=== PATIENT | female | born 1950 | race Caucasian/White ===

== ENCOUNTER 2024-06-10 12:52 | Inpatient (IN) | payer MEDICARE, OTHER, SELFPAY ==
[2024-06-10 12:53] VITALS: BP 120/50; PULSE 75; RESP 16; TEMP 35.7; O2SAT 97
--- NOTE | 2024-06-10 13:03 | ED.VIS.FEGU ---
HPI HPI - Female History of Present Illness Chief Complaint: Vag Bleeding Informant: patient, family and other (Detail Technician) Narrative Narrative: Patient sent in from her construction worker office Dr. Cait Becker, I spoke with her prior to arrival. She is status post bilateral salpingectomy with oophorectomy laparoscopically on the fourth, 9 days ago at [facility]. Reported had a manipulator device placed in her uterus have there is no surgical procedures for concerns of injury. She is on Eliquis for history of A-fib. She was restarted on her Eliquis 24 hours later. She is doing fine at 3 AM started having vaginal bleeding with clots. She went through 8 pads prior to seeing her construction worker today. In the office reported 200 cc of blood loss on vaginal exam she had a Boyer catheter placed in the cervix to control the bleeding. There was discussion with her pipe bowl paint trimmer Karel Reaves Did not reverse her Eliquis unless she requires blood transfusion. Her last hemoglobin is 12.9 in February per her construction worker. Patient did take her Eliquis at 5:30 AM today. She had ultrasound the office reported to me 5 to 6 mm clot in the uterus. Patient reports pelvic cramping. [facility] Medical History (Updated 06/10/24 @ 15:[address] Cait Becker MD) Hypothyroidism Non-smoker Hypertension Asthma COPD (chronic obstructive pulmonary disease) Congestive heart failure (CHF) Atrial fibrillation Home Medications ?Medication ?Instructions ?Recorded ?Last Taken ?Type albuterol sulfate 90 mcg/actuation 2 inh inhalation Q4H PRN shortness 06/10/24 Unknown History aerosol inhaler (Ventolin HFA) of breath or wheezing apixaban 5 mg tablet (Eliquis) 5 mg PO Q12H 06/10/24 Unknown History aspirin 81 mg tablet,delayed 81 mg PO DAILY 06/10/24 Unknown History release (Adult Aspirin Regimen) atenolol 50 mg tablet 100 mg PO Q24H 06/10/24 Unknown History budesonide-formoterol HFA 80 2 puff inhalation Q12H 06/10/24 Unknown History mcg-4.5 mcg/actuation aerosol inhaler (Symbicort) furosemide 40 mg tablet 40 mg PO Q12H 06/10/24 Unknown History guaifenesin 600 mg tablet, 600 mg PO BID 06/10/24 Unknown History extended release 12 hr (Mucinex) levothyroxine 75 mcg tablet 75 mcg PO DAILY 06/10/24 Unknown History lisinopril 20 mg tablet 20 mg PO DAILY 06/10/24 Unknown History omeprazole 20 mg capsule,delayed 20 mg PO DAILY 06/10/24 Unknown History release potassium chloride 20 mEq 40 meq PO DAILY 06/10/24 Unknown History tablet,extended release(part/cryst) psyllium husk 0.4 gram capsule 0.4 g PO DAILY 06/10/24 Unknown History (Daily Fiber) simvastatin 20 mg tablet (Zocor) 20 mg PO QHS 06/10/24 Unknown History Allergy/AdvReac Type Severity Reaction Status Date / Time ropinirole (From Requip) Allergy Mild Nausea Verified 06/10/24 12:53 Social History Smoking Status: Never smoker ROS ROS ED Constitutional Constitutional ED: Denies chills, fever(s) or sweats Eyes Eyes: Denies change in vision ENT ENT ED: Denies dysphagia or sore throat Cardiovascular Cardiovascular: Denies chest pain, leg edema, palpitations or racing heartbeat Respiratory/Chest Respiratory/Chest: Denies cough, dyspnea or dyspnea on exertion Gastrointestinal Gastrointestinal: Denies abdominal pain, diarrhea, nausea or vomiting Genitourinary Genitourinary ED: Reports other Details: Vaginal bleeding ; Denies dysuria, hematuria or urinary frequency Musculoskeletal Musculoskeletal: Denies back pain, extremity pain or neck pain Integumentary Denies rash or wounds Neurologic Neurologic: Denies headache(s), paresthesias or weakness EXAM Physical Exam Const Vital Signs: 06/10/24 12:53 06/10/24 13:40 Temperature 96.3 F L 97.8 F Temperature Source Temporal Pulse Rate 75 62 Respiratory Rate 16 18 Blood Pressure 120/50 L 112/65 Blood Pressure Mean 73 80 Pulse Ox 97 95 Oxygen Delivery Method Room Air Positive well nourished and well developed General Appearance ED: well developed and NAD; Negative for pallor HEENT Reports moist mucous membranes normocephalic and atraumatic Eyes EOMs intact bilaterally and conjunctivae normal General Eye ED: Yes normal appearance of both eyes; Negative for pale conjunctiva Neck no lymphadenopathy and supple General: Negative for tenderness Chest Wall Chest: Negative for tenderness Resp normal respiratory effort and normal air movement Effort and Inspection: symmetric chest movement; Negative for respiratory distress Cardio regular rate, regular rhythm and no murmurs Peripheral Pulses: pulses 2+ throughout GI normal to inspection, nondistended, normoactive bowel sounds and non-tender GI Narrative: Laparoscopic incisions improving bruising, wounds clean, dry, intact. Palpation: Negative for guarding or rebound tenderness present Back/Spine no CVA tenderness and no thoracic nor lumbar tenderness Extremity normal to inspection General Extremety ED: Negative for edema or tenderness General Extremity: Negative for edema Neuro oriented x3 and no sensory deficits noted Sensorium / Orientation: awake and alert Skin no rashes or lesions noted and no wounds General Skin Exam: Negative for pallor MDM MDM MDM Narrative Medical decision making narrative: Interventions / MDM: Differential diagnosis: Vaginal bleeding, chronic anticoagulation, paroxysmal atrial fibrillation Diagnosis considered but do not suspect: N/A My EKG interpretation: N/A Imaging independently reviewed and interpreted by myself: N/A External documents reviewed: N/A Test considered but not ordered:N/A ED course: Vital stable nontoxic. Reports cramping nausea Bentyl Zofran ordered. Labs ordered include coags and type and screen. No reversal at this time as discussed when her doctor called in. Heart is regular at this time. Will discuss with her construction worker for admission. I discussed with Dr. Becker for admission to the medical floor. 1325: Hemoglobin 13.4. Re-evaluation: stable Disposition discussed with patient/family/significant other: Patient and daughter Case discussed with consulting clinician: Gynecology This note was generated with [employer] dictation software. It may contain incorrect words, spelling, and punctuation that were not noted in checking the note before signing. Lab Data Attestation: I reviewed the patient's lab results. Labs: Laboratory Results - last 24 hr 06/10/24 13:10 WBC 8.3 RBC 4.49 Hgb 13.4 Hct 40.5 MCV 90.2 MCH 29.8 MCHC 33.1 RDW Std Deviation 41.2 RDW Coeff of Tierney 12.5 Plt Count 261 MPV 10.4 Immature Gran % (Auto) 0.400 Neut % (Auto) 67.5 Lymph % (Auto) 19.6 Green % (Auto) 8.9 Eos % (Auto) 3.1 Baso % (Auto) 0.5 Absolute Neuts (auto) 5.6 Absolute Lymphs (auto) 1.63 Nucleated RBC % 0 PT 15.8 H INR 1.3 APTT 26.9 Sodium 138 Potassium 4.0 Chloride 104 Carbon Dioxide 29.0 Anion Gap 5 BUN 14 Creatinine 0.70 Estim Creat Clear Calc 54.68 Est GFR (MDRD) Af Amer 104 Est GFR (MDRD) Non-Af 86 BUN/Creatinine Ratio 19.9 Glucose 102 Calcium 8.9 Blood Type B POSITIVE Antibody Screen NEGATIVE Discharge Plan Dx/Rx/DC Orders Clinical Impression: Abnormal vaginal bleeding, Chronic anticoagulation, Pelvic cramping Disposition Disposition: Acute Care [facility] Discharge Date/Time: 06/10/24 14:45
[2024-06-10 13:10] VITALS: BMI 36.5
[2024-06-10] MEDS: Dicyclomine 10 MG Capsule 20 MG PO (13:15)
[2024-06-10] MEDS: Ondansetron 4 MG/2 ML Vial IV (13:15)
[2024-06-10 13:22] LABS: Absolute Lymphocyte Count 1.63 X10^3/uL (0.83-4.51); Absolute Neutrophil Count 5.6 X10^3/uL (2.0-7.7); Basophil# 0.04 X10^3/uL; Basophil% 0.5 % (0-1); Eosinophil# 0.26 X10^3/uL; Eosinophils% 3.1 % (0-5); Hematocrit 40.5 % (37-47); Hemoglobin 13.4 g/dL (12.0-15.0); Lymphocyte # 1.63 X10^3/ul (0.83-4.51); Lymphocyte % 19.6 % (19-41); Mean Corp Hgb Conc 33.1 g/dL (32-36); Mean Corpuscular Hgb 29.8 pg (27.0-32.0); Mean Corpuscular Volume 90.2 fL (81-99); Mean Platelet Vol. 10.4 fl (6.2-12.0); Monocyte# 0.74 X10^3/uL; Monocyte% 8.9 % (0-10); NRBC Flagged by Analyzer 0 % (0-5); Neutrophil % 67.5 % (47-70); Platelet Count 261 K/mm3 (150-450); RBC Distribution Width CV 12.5 % (11.6-14.6); RBC Distribution Width SD 41.2 fl (35.1-43.9); Red Blood Count 4.49 M/mm3 (4.2-5.4); White Blood Count 8.3 K/mm3 (4.4-11.0)
[2024-06-10 13:33] LABS: Anion Gap 5 (5-15); BUN 14 mg/dL (7-18); BUN/Creat Ratio 19.9 RATIO (10-20); Calcium,Total 8.9 mg/dL (8.5-10.1); Chloride 104 mmol/L (98-107); EST Glomerular Filtration Rate 86 mL/min (>60); Est Glom Filt Rate - Afr Amer 104 mL/min (>60); Estimated Creatinine Clearance 54.68 ml/min; Glucose 102 mg/dL (74-106); Sodium Level 138 mmol/L (136-145)
[2024-06-10 13:40] VITALS: BP 112/65; PULSE 62; RESP 18; TEMP 36.6; O2SAT 95
[2024-06-10 13:44] LABS: International Normalized Ratio 1.3; Partial Thromboplast Time 26.9 Seconds (24.1-36.2); Prothrombin Time (Protime)PT. 15.8 SECONDS (11.7-14.9)
[2024-06-10] MEDS: Morphine 2 MG/ML Syringe IV (13:44)
--- NOTE | 2024-06-10 14:09 | CASEMGMT ---
Care Management Face to Face with patient for initial transition planning/care coordination assessment? This conventional underwriter introduced self and role at [facility]. Patient lying in bed, alert and oriented. Patient willing to participate in assessment and is able to answer all questions appropriately.?? Daughter also in room and permission given for her to participate in assessment. Care providers, pharmacy, and demographics verified. Admitting Diagnosis: Abnormal vaginal bleeding Other diagnosis history:? Asthma, COPD, CHF, Afib PCP: ?Randa Gonzalez, FILTRATION SUPERVISOR Specialists: Dr. Becker, JOEL, Dr. Lopez, Pulmonology Preferred Pharmacy: [facility] Insurance: Medicare A and B, [employer] Prescription Benefit:? Medicare D, patient cannot remember plan name Living Will/HPOA: ?Patient has both Living Will and HPOA completed, daughter to bring in copies if she has time LNOK: Echo Nava, daughter Living Arrangements: patient lives in a one story home, 3 steps to enter Transportation: patient drives and has reliable transportation DME/HHC: has a blood pressure cuff and grab bars in the basement Community Resources: none Behavioral Health History:? none Patient goals: Patient wishes to discharge home.? Patient states she has no further needs or concerns at this time. Disposition Plan: ?CM to follow for discharge planning needs that may arise Ivanna Goldstein, PASTA PRESS OPERATOR, JUSTICE COURT DEPUTY CLERK
[2024-06-10 14:55] VITALS: BMI 35.9
[2024-06-10 15:01] VITALS: BP 134/65; PULSE 63; RESP 16; TEMP 36.4; O2SAT 98
[2024-06-10 15:05] VITALS: PULSE 80
--- NOTE | 2024-06-10 15:35 | CT_ITS ---
INDICATION: serrous carcinoma of left fallopian tube EXAMINATION: CTA abdomen and pelvis - TECHNIQUE: Routine abdominal CT angiogram protocol was performed with IV contrast. MIP images provided. A radiation dose optimization technique was used for this scan.The protocol utilizes one or more of the following dose reduction techniques: automated exposure control, adjustment of mA and/or kV according to patient size,and/or use of iterative reconstruction technique. IV Contrast dosage and agent: 100 mL''s Isovue 370 Radiation dose DLP 985.85 mGy / cm. COMPARISON: None. FINDINGS: Lung bases: Cardiomegaly. Liver: Normal. No bile ductal dilatation. Gallbladder: Normal. Spleen: Normal. Adrenal gland: Normal. Kidneys: Normal. No hydronephrosis or stone formation. Pancreas:Normal. Bowel gas pattern: Increased gas in the colon. Appendix: Normal. Free air: None. Free fluid: [Moderate free fluid. Pelvis: Pelvic organs: No mass lesion noted. Bladder decompressed with a Boyer catheter. Bone survey: No aggressive bony lesions. No acute fractures. Adenopathy: No significant pathologic adenopathy detected. Other: None. Vascular: Normal vascular anatomy, CT/CTA Abd/Pelvis W/WO Contrast IMPRESSION: Moderate free fluid in the pelvis. Uterus not identified. No definite mass. Electronically Signed: Ovi Montes MD at 17:25 EST ,
--- NOTE | 2024-06-10 15:51 | HP.PCM_ITS ---
History and Physical Date of Admission: 06/10/24 Oma Cline is a 74 year old female who presents for problem visit for vaginal bleeding . HPI: 74-year-old female who status post laparoscopic bilateral salpingectomy and oophorectomy on 06/01/2024 presents complaining of acute bright red vaginal bleeding. She states she woke up at 3 AM with bright red vaginal bleeding. She had no vaginal bleeding up until now postoperatively. She reports that she has had normal bowel movements and urination. Her appetites been normal. She has had some ecchymoses around her incisions. She states that she has continued to pass some clots and bright red bleeding and saturated approximately 8 or 9 pads since this morning. They have not been completely saturated but they have been fairly flat. She denies feeling lightheaded, dizzy shortness of breath or chest pain or palpitations. She denies any trauma to the vaginal area. She states that she did take her Eliquis this morning. OB History T3 L3 SAB2 IAB0 Ectopic0 Multiple0 Live Births3 Narcotics Detective History LMP: Postmenopausal Age at Menarche: Age at First : Age at Menopause: Narcotics Detective History Comments: Sexual Activity: Not Asked; No partner data on record; not asked Contraception: No contraception data on record ? PAST MEDICAL HISTORY PAST MEDICAL HISTORY Diagnosis Date ? Acquired hypothyroidism ? Adjustment disorder with anxious mood Since of 07/2010 ? Atrial fibrillation (HCC) ? Bronchitis ? Chronic diastolic heart failure (HCC) ? Chronic obstructive lung disease (HCC) ? Conjunctivitis ? Cutaneous hypersensitivity ? Depressive disorder ? Dysphagia ? Dyspnea on exertion ? Edema ? Essential hypertension ? Fatigue ? Gastroesophageal reflux disease ? History of colonic polyps ? Hyperlipidemia ? Knee pain, right ? Nasal congestion ? Obesity with body mass index 30 or greater ? Otalgia ? Pain in lower limb ? Peripheral edema ? Pneumonia ? Restless legs ? Urge incontinence of urine ? Vitamin D deficiency PAST SURGICAL HISTORY PAST SURGICAL HISTORY Procedure Laterality Date ? COLONOSCOPY 03/10/[address] Pastor ? EGD 04/14/2019 ? KNIFE,CARPAL TUNNEL, Carpal Tunnel Surgery FAMILY HISTORY FAMILY HISTORY Problem Relation Age of Onset ? Heart Mother CABG x3 ? Alzheimer's Disease Mother ? other (Parkinson's) Mother ? Alcohol/Drug Father ? other (lung problems) Father ? other (collapsed lung) Father ? Heart Maternal Grandmother ? Heart Maternal Grandfather ? Breast Cancer Paternal Grandmother ? Asthma Daughter ? Diabetes Son ? Anesthesia Problems No Family History SOCIAL HISTORY Social History Tobacco Use ? Smoking status: Never ? Smokeless tobacco: Never Vaping Use ? Vaping status: Never Used Substance Use Topics ? Alcohol use: No ? Drug use: No CURRENT MEDICATIONS Current Outpatient Medications Medication Sig ? Ibuprofen 200 mg cap Take 2 capsules by mouth every 4 hours as needed (for pain). ? acetaminophen (TYLENOL EXTRA STRENGTH) 500 mg tablet Take 2 tablets by mouth every 6 hours as needed for pain. ? simvastatin (ZOCOR) 20 mg tablet Take 20 mg by mouth daily at bedtime. ? potassium chloride ER (KLOR-CON) 20 mEq tablet TAKE 2 TABLETS ONE TIME DAILY ? albuterol HFA (VENTOLIN HFA) 90 mcg/actuation inhaler INHALE 2 PUFFS EVERY 4 HOURS NEEDED FOR WHEEZING / SHORTNESS OF BREATH DIRECTED ? budesonide-formoterol (SYMBICORT) 160-4.5 mcg/actuation inhaler Inhale 2 Puffs as instructed two times a day. ? furosemide (LASIX) 40 mg tablet take 1 tablet twice daily ? ELIQUIS 5 mg tab(s) take 1 tablet twice daily ? atenolol (TENORMIN) 50 mg tablet TAKE 2 TABLETS ONE TIME DAILY ? levothyroxine (SYNTHROID) 75 mcg tablet take 1 tablet every day ? lisinopril (ZESTRIL) 20 mg tablet take 1 tablet every day ? MUCINEX 600 mg 12 hr tablet take 1 tablet twice daily ? aspirin 81 mg chewable tablet Take 81 mg by mouth once daily. ? Omeprazole Magnesium 20 mg tablet Take 20 mg by mouth once daily. ? psyllium husk 0.4 gram cap Take by mouth. (Patient not taking: Reported on 05/26/2024) No current facility-administered medications for this visit. Allergies As of Date: 06/10/2024 Allergen Noted Reaction MIRAPEX [PRAMIPEXOLE] 04/26/2020 Other: See Comments REQUIP [ROPINIROLE] 04/16/2016 Diarrhea, GI Upset, and Vomiting Fully Assessed 06/10/2024 Allergies and current medication updated:Yes SENSITIVE EXAM: The sensitive examination was discussed with the Patient or Patient's Authorized Tax Auditor. As applicable, any other physician, advance practice provider, medical student, or other health professional student that will be observing or involved in the sensitive examination for educational or training purposes was discussed with the Patient or Authorized Tax Auditor. The Patient or Authorized Tax Auditor has agreed to proceed with the sensitive examination. (Sensitive examination includes inspection and/or palpation of the breasts, pelvis, prostate and anorectal regions). EXAM: There were no vitals taken for this visit. GENERAL: pleasant, female in no apparent distress ABDOMEN: soft, minimally-tender, no masses, and incisions are clean dry and intact with skin glue. There are some diffuse ecchymosis consistent with postop . bruising. No erythema. No rebound or guarding PELVIC: external genitalia normal, normal Bartholin's glands, urethra, [place]'s glands, no vulvar lesions, no cervical lesions, good vaginal support, normal appearing perineal body and perianal region, there is approximately 50 cc of blood and clot in the vagina when I placed the speculum. There is bright red blood oozing from the cervical os. The uterus is minimally tender and mobile. ASSESSMENT AND PLAN: Assessment & Plan PMB (postmenopausal bleeding) Orders: ? PELVIC US WHI; Future ? Anticoagulated ? 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 Then consult with [facility] oncology. Consult is scheduled. Patient is having active vaginal bleeding. A pelvic ultrasound was done in the office today. Ovaries are surgically absent. Uterus is small and normal in appearance except for some small amount of fluid collection consistent with a blood clot in the uterus. It is less than 1 cm. Patient had several gushes of blood while in the office. Spoke with patient's clinical education assistant. Agrees that patient should be observed in the hospital for continued bleeding. Would consider reversal of Eliquis if hemoglobin drops significantly or we cannot control bleeding conservatively. Patient did take her Eliquis today we will hold the Eliquis for the next 24 to 36 hours and see if the Boyer balloon tamponade holds. Checkout was given to the emergency room physician as there were no beds available for direct admission at the time patient left the office. Will check CBC, metabolic panel, coags and have patient typed and screened in case she needs a transfusion. If continues to bleed actively despite the Boyer balloon would consider transport to tertiary care center in case needs surgical or interventional radiology to be involved. Patient and her daughter Echo agree w/ plan. 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 If can do during admission will in case needs transported. If needs surgical intervetion would transport so circuit board inspector onc is available. 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
--- NOTE | 2024-06-10 16:03 | CON.PCM.HO_ITS ---
Assessment & Plan Assessment/Plan (1) Abnormal vaginal bleeding: PLAN: Plan Patient is a 74-year-old female who presented [facility] ED on 06/10/2024 for vaginal bleeding. Admitted to the INFORMATION SYSTEMS DIRECTOR service and medicine was consulted for medical management. 1. Vaginal bleeding with mild acute blood loss anemia ? INFORMATION SYSTEMS DIRECTOR primary. Pelvic ultrasound done in INFORMATION SYSTEMS DIRECTOR office showed small uterus normal in appearance except for a small amount of fluid collection consistent with blood clot in the uterus. Boyer balloon tamponade in place. Hemoglobin trend 13.4 (1pm) > 11.8 (6pm), repeat CBC ordered for tomorrow morning. Has been hemodynamically stable. Last dose of Eliquis was this morning; was discussed with cardiology per INFORMATION SYSTEMS DIRECTOR physician and Eliquis will be held for 24 to 36 hours. Per INFORMATION SYSTEMS DIRECTOR, if patient has worsening bleeding despite Boyer balloon would consider transport to tertiary care center in case of need for surgical/research and development technician onc or interventional radiology services. 2. 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 Had laparoscopic salpingectomy and oophorectomy done on 06/01. Unclear on reason for procedure, not listed in note. 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 CT abdomen pelvis with IV contrast on 06/10 showed moderate free fluid in the pelvis with uterus not identified, otherwise no definitive mass and no other lesions noted. Plan as above. 3. A-fib on Eliquis ? Holding Eliquis as noted above. Okay to continue home atenolol. 4. History of CHF, hypertension, hyperlipidemia ? Hemodynamically stable and appeared euvolemic on exam on admit. Blood pressure normotensive to borderline hypotensive. Unclear degree of heart failure, no echo results available in our chart. Given 500 cc LR bolus this evening and will hold home Lasix and lisinopril for now. Hold home aspirin. Continue home statin. Monitor closely. Chronic medical conditions: ? Obesity: BMI 36 on admit. Complicates hospital course, care and prognosis. ? COPD: Stable on room air, not in acute exacerbation. Continue home inhalers. ? Hypothyroidism: Continue home Synthroid. ? GERD: Continue home PPI. DVT prophylaxis: SCDs Total clinical time spent by myself addressing the patient's medical issues, reviewing all the data, and collaborating with patient's care team: 50 minutes. HPI Consult Data Date of Consult: 06/10/24 HPI Narrative Reason for Consultation: Medical management HPI Narrative: RAHEEL SANCHEZ, is a 74 F who presented to [facility] ED on 06/10/2024 with vaginal bleeding. Patient was admitted under the INFORMATION SYSTEMS DIRECTOR service and medicine was consulted for medical management. Patient is status post laparoscopic bilateral salpingectomy and oophorectomy 06/01/[address] Becker. She is on Eliquis for A-fib. Patient began having vaginal bleeding this morning at 3 AM that woke her up from sleep. She noted that it was bright red blood. She had not had any vaginal bleeding until then postoperatively. She saturated approximately 8-9 pads this morning before going into the INFORMATION SYSTEMS DIRECTOR office. Pelvic ultrasound was done at the office that showed a small uterus that was normal in appearance except for some small amount of fluid collection consistent with a blood clot in the uterus. Dr. Becker did note the patient had several gushes of blood while in the office. She discussed with cardiology who recommended admission to the hospital for observation and holding Eliquis for now. There were no direct admit beds available so patient came into the ED. Boyer balloon was placed in the office to tamponade off bleeding prior to her going to the ED. Patient was hemodynamically stable on arrival to the ED. Hemoglobin was 13.4. She was then admitted for further management. I saw the patient at bedside on the floor, daughter was present. Patient was sitting up comfortably in bed, conversing normally, in no acute distress. Noted that she did have a small amount of blood in the toilet when she urinated about half an hour ago. She denied any lightheadedness or dizziness with ambulation. She did report mild lower abdominal cramping that has been fairly persistent throughout the day today. No other acute concerns at this time. [facility] Medical History (Updated 06/10/24 @ 15:[address] Cait Becker MD) Hypothyroidism Non-smoker Hypertension Asthma COPD (chronic obstructive pulmonary disease) Congestive heart failure (CHF) Atrial fibrillation Home Medications ?Medication ?Instructions ?Recorded ?Last Taken ?Type albuterol sulfate 90 mcg/actuation 2 inh inhalation Q4H PRN shortness 06/10/24 Unknown History aerosol inhaler (Ventolin HFA) of breath or wheezing apixaban 5 mg tablet (Eliquis) 5 mg PO Q12H 06/10/24 Unknown History aspirin 81 mg tablet,delayed 81 mg PO DAILY 06/10/24 Unknown History release (Adult Aspirin Regimen) atenolol 50 mg tablet 100 mg PO Q24H 06/10/24 Unknown History budesonide-formoterol HFA 80 2 puff inhalation Q12H 06/10/24 Unknown History mcg-4.5 mcg/actuation aerosol inhaler (Symbicort) furosemide 40 mg tablet 40 mg PO Q12H 06/10/24 Unknown History guaifenesin 600 mg tablet, 600 mg PO BID 06/10/24 Unknown History extended release 12 hr (Mucinex) levothyroxine 75 mcg tablet 75 mcg PO DAILY 06/10/24 Unknown History lisinopril 20 mg tablet 20 mg PO DAILY 06/10/24 Unknown History omeprazole 20 mg capsule,delayed 20 mg PO DAILY 06/10/24 Unknown History release potassium chloride 20 mEq 40 meq PO DAILY 06/10/24 Unknown History tablet,extended release(part/cryst) psyllium husk 0.4 gram capsule 0.4 g PO DAILY 06/10/24 Unknown History (Daily Fiber) simvastatin 20 mg tablet (Zocor) 20 mg PO QHS 06/10/24 Unknown History Allergy/AdvReac Type Severity Reaction Status Date / Time ropinirole (From Requip) Allergy Mild Nausea Verified 06/10/24 12:53 Social History Smoking Status: Never smoker ROS Constitutional Constitutional: Denies chills, fatigue, fever(s) or weakness Cardiovascular Cardiovascular: Denies chest pain Respiratory/Chest Respiratory/Chest: Denies shortness of breath at rest or shortness of breath with exertion Gastrointestinal Gastrointestinal: Reports abdominal pain; Denies constipation, diarrhea, nausea or vomiting Genitourinary Genitourinary: Reports hematuria Musculoskeletal Musculoskeletal: Denies arthralgias or myalgias Physical Exam Const alert, oriented x3 and no apparent distress Constitutional Narrative: Pleasant elderly female, obese, sitting up comfortably in bed, conversing normally, in no acute distress. General Appearance: cooperative and comfortable HEENT normocephalic, head/scalp atraumatic, hearing grossly normal bilaterally, nasal mucous membranes and turbinates normal and moist oral mucous membranes Eyes PERRL, EOMs intact bilaterally and conjunctivae normal Neck full ROM Chest inspection of chest normal Resp normal respiratory effort, normal air movement, no use of accessory muscles and clear to auscultation bilaterally Cardio regular rate, regular rhythm, no murmurs and peripheral pulses 2+ throughout GI normal to inspection, nondistended, normoactive bowel sounds, soft to palpation, non-tender and non-distended Bladder / Kidney Exam: catheter in place and No bladder normal to palpation Back/Spine normal ROM Extremity normal to inspection, full ROM and no pedal edema Skin no rashes or lesions noted Psych mental status grossly normal Lab / Micro Data 06/10/24 18:30 06/10/24 13:10 Labs: Laboratory Results - last 24 hr 06/10/24 13:10: WBC 8.3, RBC 4.49, Hgb 13.4, Hct 40.5, MCV 90.2, MCH 29.8, MCHC 33.1, RDW Std Deviation 41.2, RDW Coeff of Tierney 12.5, Plt Count 261, MPV 10.4, Immature Gran % (Auto) 0.400, Neut % (Auto) 67.5, Lymph % (Auto) 19.6, [place] % (Auto) 8.9, Eos % (Auto) 3.1, Baso % (Auto) 0.5, Absolute Neuts (auto) 5.6, Absolute Lymphs (auto) 1.63, Nucleated RBC % 0, PT 15.8 H, INR 1.3, APTT 26.9, Sodium 138, Potassium 4.0, Chloride 104, Carbon Dioxide 29.0, Anion Gap 5, BUN 14, Creatinine 0.70, Estim Creat Clear Calc 54.68, Est GFR (MDRD) Af Amer 104, Est GFR (MDRD) Non-Af 86, BUN/Creatinine Ratio 19.9, Glucose 102, Calcium 8.9, Blood Type B POSITIVE, Antibody Screen NEGATIVE Charges/Coding Visit Charges Inpatient E&M: 82334 Subs Hosp L3
[2024-06-10] MEDS: Furosemide 40 MG Tablet PO (16:52)
[2024-06-10] MEDS: Acetaminophen 500 MG Tablet 1000 MG PO (16:54)
[2024-06-10 18:41] LABS: Hematocrit 34.9 % (37-47); Hemoglobin 11.8 g/dL (12.0-15.0); Mean Corp Hgb Conc 33.8 g/dL (32-36); Mean Corpuscular Hgb 30.5 pg (27.0-32.0); Mean Corpuscular Volume 90.2 fL (81-99); Mean Platelet Vol. 10.6 fl (6.2-12.0); Platelet Count 237 K/mm3 (150-450); RBC Distribution Width CV 12.6 % (11.6-14.6); RBC Distribution Width SD 41.2 fl (35.1-43.9); Red Blood Count 3.87 M/mm3 (4.2-5.4); White Blood Count 12.2 K/mm3 (4.4-11.0)
[2024-06-10] MEDS: guaiFENesin 600 MG Tablet PO (21:03)
[2024-06-10 21:12] VITALS: BP 100/43; PULSE 73; RESP 16; TEMP 36.4; O2SAT 95
[2024-06-10] MEDS: Lactated Ringers 1,000 ML 250 ML IV (22:03)
[2024-06-10] MEDS: 0.9% Saline Lock 10 ML Syringe IV (22:03)
[2024-06-11] MEDS: Acetaminophen 500 MG Tablet 1000 MG PO ×4 (00:13→20:32)
[2024-06-11 04:25] VITALS: BMI 35.9
[2024-06-11] MEDS: Levothyroxine 75 MCG Tablet PO (06:26)
[2024-06-11 06:29] VITALS: BP 122/57; PULSE 62; RESP 16; TEMP 36.4; O2SAT 95
[2024-06-11 07:28] LABS: Absolute Lymphocyte Count 1.16 X10^3/uL (0.83-4.51); Absolute Neutrophil Count 6.3 X10^3/uL (2.0-7.7); Basophil# 0.03 X10^3/uL; Basophil% 0.4 % (0-1); Eosinophil# 0.22 X10^3/uL; Eosinophils% 2.6 % (0-5); Hematocrit 32.2 % (37-47); Hemoglobin 10.7 g/dL (12.0-15.0); Lymphocyte # 1.16 X10^3/ul (0.83-4.51); Lymphocyte % 13.8 % (19-41); Mean Corp Hgb Conc 33.2 g/dL (32-36); Mean Corpuscular Hgb 30.2 pg (27.0-32.0); Mean Platelet Vol. 10.4 fl (6.2-12.0); Monocyte# 0.66 X10^3/uL; Monocyte% 7.9 % (0-10); NRBC Flagged by Analyzer 0 % (0-5); Neutrophil % 74.9 % (47-70); Platelet Count 201 K/mm3 (150-450); RBC Distribution Width CV 12.6 % (11.6-14.6); Red Blood Count 3.54 M/mm3 (4.2-5.4); White Blood Count 8.4 K/mm3 (4.4-11.0)
--- NOTE | 2024-06-11 07:28 | PN.OBGYN_ITS ---
Subjective Subjective Bleeding overnight has been minimal. Up to restroom at least twice. Mcdaniel still in place. Uncomfortable and sore but not in significant pain. No n/v. Objective Data Objective Data Vital Signs: Vital Signs Temp Pulse Resp BP Pulse Ox O2 Del Method 97.6 F L 62 16 122/57 H 95 Room Air 06/11/24 06:29 06/11/24 06:29 06/11/24 06:29 06/11/24 06:29 06/11/24 06:29 06/11/24 06:29 Oxygen Delivery Method Room Air Weight: 75.4 kg Body Mass Index (BMI) 35.9 Intake & Output: Intake and Output for Last 24 Hours 06/09/24 06/10/24 06/11/24 23:59 23:59 23:59 Intake Total 600 / 600 Balance 600 / 600 Lab / Micro Data 06/11/24 07:17 06/10/24 13:10 Labs: Laboratory Results - last 24 hr 06/10/24 13:10: WBC 8.3, RBC 4.49, Hgb 13.4, Hct 40.5, MCV 90.2, MCH 29.8, MCHC 33.1, RDW Std Deviation 41.2, RDW Coeff of Tierney 12.5, Plt Count 261, MPV 10.4, Immature Gran % (Auto) 0.400, Neut % (Auto) 67.5, Lymph % (Auto) 19.6, [place] % (Auto) 8.9, Eos % (Auto) 3.1, Baso % (Auto) 0.5, Absolute Neuts (auto) 5.6, Absolute Lymphs (auto) 1.63, Nucleated RBC % 0, PT 15.8 H, INR 1.3, APTT 26.9, Sodium 138, Potassium 4.0, Chloride 104, Carbon Dioxide 29.0, Anion Gap 5, BUN 14, Creatinine 0.70, Estim Creat Clear Calc 54.68, Est GFR (MDRD) Af Amer 104, Est GFR (MDRD) Non-Af 86, BUN/Creatinine Ratio 19.9, Glucose 102, Calcium 8.9, Blood Type B POSITIVE, Antibody Screen NEGATIVE 06/10/24 18:30: WBC 12.2 H, RBC 3.87 L, Hgb 11.8 L, Hct 34.9 L, MCV 90.2, MCH 30.5, MCHC 33.8, RDW Std Deviation 41.2, RDW Coeff of Tierney 12.6, Plt Count 237, MPV 10.6 Radiography Diagnostic Testing: Radiology Impression Abdomen/Pelvis CTA 06/10/24 15:35 IMPRESSION: Moderate free fluid in the pelvis. Uterus not identified. No definite mass. Electronically Signed: Ovi Montes MD at 17:25 EST , ADDENDUM: 06/10/241835 IMPRESSION: undefined ADDENDUM: 06/10/241856 IMPRESSION: undefined ROS ENT HEENT: Denies headache(s) Cardiovascular Cardiovascular: Denies lightheadedness Respiratory/Chest Respiratory/Chest: Denies shortness of breath at rest Gastrointestinal Gastrointestinal: Denies nausea or vomiting Neurologic Neurologic: Denies syncope or weakness Physical Exam Const alert, oriented x3 and no apparent distress General Appearance: cooperative and comfortable HEENT normocephalic Head and Scalp: atraumatic Eyes PERRL Resp normal respiratory effort GI soft to palpation and non-distended Inspection: incision intact, healing well and other (bruising around port sites) Narrative: scant old blood on pad Psych mental status grossly normal and affect normal Assessment & Plan (1) Abnormal vaginal bleeding: PLAN: Plan to remove mcdaniel at noon and evaluate for bleeding (2) Chronic anticoagulation: PLAN: Eliquis held for now. 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
[2024-06-11 10:01] VITALS: BP 137/67; PULSE 71; RESP 18; TEMP 36.6; O2SAT 94
[2024-06-11] MEDS: Pantoprazole Sodium 20 MG Tablet PO (10:09)
[2024-06-11] MEDS: Atenolol 100 MG Tablet PO (10:09)
[2024-06-11] MEDS: guaiFENesin 600 MG Tablet PO ×2 (10:09→20:32)
--- NOTE | 2024-06-11 13:13 | PCM.PN.BLA ---
Progress Note At bedside to check on pt. Having some cramping. No fevers, chills, malaise. Her bleeding has stopped. She has been ambulating without difficulty and no increased bleeding with ambulation. Denies Cp, SOB, palpitations. 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 Per radiologist the mcdaniel catheter has perforated through the uterus, and is in the abdominal cavity above the uterus. There is a small amount of blood in the pelvic cul de sac. Called intervention analyst oncologist that she is scheduled with next week for another opinion and to discuss plan of care. Will remove the mcdaniel and monitor patient's bleeding and symptoms. Head Of Integrated Media onc will attempt to get patient in sooner than scheduled appointment. Discussed with patient risk of infection and risk of bleeding again. Questions answered. Discussed transfer to tertiary care center with oncology if continued bleeding.
--- NOTE | 2024-06-11 14:02 | NURSING ---
At Approimately 1345, Dr. Skinner came up and took Balloon Tamponade out.
[2024-06-11 16:56] VITALS: BP 124/57; PULSE 63; RESP 18; TEMP 36.5; O2SAT 94
--- NOTE | 2024-06-11 16:59 | PN.HOSP_ITS ---
Reason for Visit Reason for Visit: Diagnoses Malignant neoplasm of pelvis (06/11/24) Abnormal uterine and vaginal bleeding, unspecified (06/11/24) Pelvic and perineal pain (06/11/24) termite exterminator helper (current) use of anticoagulants (06/11/24) Subjective Subjective Patient was seen and examined today, I talked at length with TRANSCRIPTION MANAGER by phone-Dr. Skinner-the patient's Boyer catheter which was inserted into the uterus to stop bleeding had evidently perforated the uterus and was inside the abdomen, this Boyer was removed today and they are waiting to get the patient up to see if she has further bleeding. Patient's daughter was in her room at the time my examination today. Objective Data Objective Data Vital Signs: Vital Signs Temp Pulse Resp BP Pulse Ox O2 Del Method 97.9 F 71 18 137/67 H 94 Room Air 06/11/24 10:01 06/11/24 10:01 06/11/24 10:01 06/11/24 10:01 06/11/24 10:01 06/11/24 10:01 Oxygen Delivery Method Room Air Weight: 75.4 kg Body Mass Index (BMI) 35.9 Intake & Output: Intake and Output for Last 24 Hours 06/09/24 06/10/24 06/11/24 23:59 23:59 23:59 Intake Total 600 / 600 Balance 600 / 600 Lab / Micro Data 06/11/24 07:17 06/10/24 13:10 Labs: Laboratory Results - last 24 hr 06/10/24 18:30: WBC 12.2 H, RBC 3.87 L, Hgb 11.8 L, Hct 34.9 L, MCV 90.2, MCH 30.5, MCHC 33.8, RDW Std Deviation 41.2, RDW Coeff of Tierney 12.6, Plt Count 237, MPV 10.6 06/11/24 07:17: WBC 8.4, RBC 3.54 L, Hgb 10.7 L, Hct 32.2 L, MCV 91.0, MCH 30.2, MCHC 33.2, RDW Std Deviation 42.0, RDW Coeff of Tierney 12.6, Plt Count 201, MPV 10.4, Immature Gran % (Auto) 0.400, Neut % (Auto) 74.9 H, Lymph % (Auto) 13.8 L, [place] % (Auto) 7.9, Eos % (Auto) 2.6, Baso % (Auto) 0.4, Absolute Neuts (auto) 6.3, Absolute Lymphs (auto) 1.16, Nucleated RBC % 0 Radiography Diagnostic Testing: Radiology Impression Abdomen/Pelvis CTA 06/10/24 15:35 IMPRESSION: Moderate free fluid in the pelvis. Uterus not identified. No definite mass. Electronically Signed: Ovi Montes MD at 17:25 EST Reading Location ID and State: [address] [place] [address] Tel , Service support , ADDENDUM: 06/10/241835 IMPRESSION: undefined ADDENDUM: 06/10/241856 IMPRESSION: undefined Physical Exam Const alert, oriented x3 and no apparent distress General Appearance: cooperative, well kempt and well developed Orientation / Consciousness: awake, oriented to person, oriented to place and oriented to time HEENT normocephalic, head/scalp atraumatic and moist oral mucous membranes Eyes PERRL, EOMs intact bilaterally and conjunctivae normal Neck supple, no JVD, thyroid normal and no carotid bruits General: trachea midline Resp normal respiratory effort, no retractions, no use of accessory muscles and clear to auscultation bilaterally Auscultation: Negative for rales, rhonchi or wheezes Cardio regular rate, regular rhythm, S1 normal heart sound, S2 normal heart sound, no murmurs, no rub and no gallops GI normal to inspection, nondistended, normoactive bowel sounds, soft to palpation, non-tender and non-distended Extremity no clubbing, cyanosis or edema Skin no rashes or lesions noted General Skin Exam: no breakdown Neuro oriented x3, CN's II-XII intact bilaterally, moves all extremities, no focal motor deficits and no sensory deficits noted Sensorium / Orientation: awake and alert Speech: speech normal Psych affect normal Assessment & Plan Assessment/Plan (1) Abnormal vaginal bleeding: PLAN: Plan 1. Essential hypertension-patient will remain on her current medication, blood pressure will be monitored, medication will be adjusted if needed #2 hyperlipidemia-patient is currently on a statin #3 hypothyroidism-patient is on Synthroid #4 chronic obstructive pulmonary disease-patient will be placed on as needed albuterol aerosols and twice daily budesonide aerosols #5 uterine bleeding-etiology unclear, TRANSCRIPTION MANAGER will observe for more bleeding this afternoon, if no more bleeding occurs, patient will be placed on a diet. Patient's hemoglobin is stable at this time, CBC will be rechecked tomorrow Total clinical time spent by myself addressing the patient's medical issues, reviewing all of her data, and collaborating with patient's care team: 35- minutes Charges/Coding Visit Charges Inpatient E&M: 31527 Subs Hosp L2
--- NOTE | 2024-06-11 17:03 | NURSING ---
Pt VS done, see findings. Pt abd soft, nontender. BS normal x4 qauds. Attends on with smear of fresh blood. Dr. Hancock wants pt to get up and move to make sure there is no gushing of blood like in the office.
[2024-06-11 19:33] VITALS: PULSE 78; RESP 16
[2024-06-11] MEDS: Budesonide Respules 0.5 MG/2 ML AMPUL.NEB. INHALATION (19:33)
[2024-06-11 20:15] VITALS: BP 109/47; PULSE 67; RESP 16; TEMP 36.8; O2SAT 96
[2024-06-12 04:40] VITALS: BMI 35.7
[2024-06-12 04:41] VITALS: BP 130/62; PULSE 66; RESP 16; TEMP 36.7; O2SAT 96
[2024-06-12] MEDS: Acetaminophen 500 MG Tablet 1000 MG PO ×2 (04:44→12:55)
[2024-06-12] MEDS: Levothyroxine 75 MCG Tablet PO (04:44)
[2024-06-12 06:38] LABS: Absolute Lymphocyte Count 0.91 X10^3/uL (0.83-4.51); Absolute Neutrophil Count 6.5 X10^3/uL (2.0-7.7); Basophil# 0.02 X10^3/uL; Basophil% 0.2 % (0-1); Eosinophil# 0.14 X10^3/uL; Eosinophils% 1.7 % (0-5); Hematocrit 31.6 % (37-47); Hemoglobin 10.3 g/dL (12.0-15.0); Lymphocyte # 0.91 X10^3/ul (0.83-4.51); Mean Corp Hgb Conc 32.6 g/dL (32-36); Mean Corpuscular Hgb 30.1 pg (27.0-32.0); Mean Corpuscular Volume 92.4 fL (81-99); Mean Platelet Vol. 10.6 fl (6.2-12.0); Monocyte% 8.5 % (0-10); NRBC Flagged by Analyzer 0 % (0-5); Neutrophil # 6.45 X10^3/uL (2.7-7.7); Neutrophil % 78.1 % (47-70); Platelet Count 182 K/mm3 (150-450); RBC Distribution Width CV 12.6 % (11.6-14.6); RBC Distribution Width SD 42.5 fl (35.1-43.9); Red Blood Count 3.42 M/mm3 (4.2-5.4); White Blood Count 8.3 K/mm3 (4.4-11.0)
--- NOTE | 2024-06-12 08:16 | PCM.PN.OB ---
Subjective Subjective The patient is doing well this morning. Bleeding has been scant and dark overnight. She is ambulating and voiding without difficulty. She had a bowel movement last night. She tolerated dinner without nausea or vomiting. She denies lightheadedness, dizziness, fevers, chills, malaise. She has no pain. She offers no complaints and desires to go home. Objective Data Objective Data Vital Signs: Vital Signs Temp Pulse Resp BP Pulse Ox O2 Del Method 98.1 F 66 16 130/62 H 96 Room Air 06/12/24 04:41 06/12/24 04:41 06/12/24 04:41 06/12/24 04:41 06/12/24 04:41 06/12/24 04:41 Oxygen Delivery Method Room Air Weight: 165 lb 12.602 oz Body Mass Index (BMI) 35.7 Intake & Output: Intake and Output for Last 24 Hours 06/10/24 06/11/24 06/12/24 23:59 23:59 23:59 Intake Total 720 / 920 400 / 400 Balance 720 / 920 400 / 400 Lab / Micro Data 06/12/24 06:26 06/10/24 13:10 Labs: Laboratory Results - last 24 hr 06/12/24 06:26: WBC 8.3, RBC 3.42 L, Hgb 10.3 L, Hct 31.6 L, MCV 92.4, MCH 30.1, MCHC 32.6, RDW Std Deviation 42.5, RDW Coeff of Tierney 12.6, Plt Count 182, MPV 10.6, Immature Gran % (Auto) 0.500, Neut % (Auto) 78.1 H, Lymph % (Auto) 11.0 L, [place] % (Auto) 8.5, Eos % (Auto) 1.7, Baso % (Auto) 0.2, Absolute Neuts (auto) 6.5, Absolute Lymphs (auto) 0.91, Nucleated RBC % 0 Physical Exam Const alert and no apparent distress General Appearance: comfortable HEENT normocephalic Resp normal respiratory effort GI soft to palpation, non-tender and non-distended GI Narrative: Incisions c/d/i, non acute Extremity normal to inspection and no calf tenderness Assessment & Plan (1) 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 Hgb stable and VSS. Discussed resuming Eliquis and discharge later today if bleeding remains minimal. Furniture Sales Associate oncology to contact patient with sooner appointment if able.
--- NOTE | 2024-06-12 08:23 | DCINST_ITS ---
Discharge Instructions Diet Discharge Diet: No restrictions Activity Discharge Activity: May Shower May resume sexual activity in: 2 weeks Weight Bearing Status: Weight bearing as tolerated Lifting Restrictions: nothing heavier than 20-25 pounds Additional Activity Instructions:: Call with fever 100.4 or greater, chills, if you do not feel well like you have the flu, vaginal bleeding increases, abdominal pain, nausea, vomiting Dressing / Incision Call your doctor if you observe: Fever of 101 or Higher, Inability to have a bowel movement, Using more than 1 pad per hour, Shortness of breath, Dizziness, Fainting spells, Swelling in the ankles, Chest pain, Increased palpitations (irregular heartbeat), Calf discomfort and Uncontrolled pain Follow Up Care Please Follow Up With: Cait Becker MD When: As needed Otherwise Dr. Kaycee Hamlin with citrus fruit packer oncology should contact you regarding a sooner visit if possible Test Results: Test results from this visit will be discussed in further detail at your follow- up appointment, if applicable. Discharge Plan Admission Admit Date/Time: 06/11/24 13:55 Primary Reason for Your Visit: vaginal bleeding Attending Provider: Cait Becker Primary Care Provider: Randa Gonzalez NP Consulting Providers: Nato Acuna Mark Discharge Orders/Prescriptions Prescriptions: Continued simvastatin [Zocor] 20 mg tablet 20 mg PO QHS potassium chloride 20 mEq tablet,ER particles/crystals 40 meq PO DAILY albuterol sulfate [Ventolin HFA] 90 mcg/actuation HFA aerosol inhaler 2 inh inhalation Q4H PRN (Reason: shortness of breath or wheezing) furosemide 40 mg tablet 40 mg PO Q12H Eliquis 5 mg tablet 5 mg PO Q12H atenolol 50 mg tablet 100 mg PO Q24H levothyroxine 75 mcg tablet 75 mcg PO DAILY lisinopril 20 mg tablet 20 mg PO DAILY guaifenesin [Mucinex] 600 mg tablet extended release 12hr 600 mg PO BID psyllium husk [Daily Fiber] 0.4 gram capsule 0.4 g PO DAILY aspirin [Adult Aspirin Regimen] 81 mg tablet,delayed release (DR/EC) 81 mg PO DAILY omeprazole 20 mg capsule,delayed release(DR/EC) 20 mg PO DAILY budesonide-formoterol [Symbicort] 80-4.5 mcg/actuation HFA aerosol inhaler 2 puff inhalation Q12H Referrals / Follow Up: Randa Gonzalez WIND ENERGY ENGINEER, WIND ENERGY ENGINEER-C [Primary Care Provider] - Disposition Disposition (needs filled in before D/C Order can be placed): Home, Self Care
--- NOTE | 2024-06-12 08:27 | DS.PCM_ITS ---
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 Hgb stable and VSS. Discussed resuming Eliquis and discharge later today if bleeding remains minimal. [facility] [employer] onc[facility] to contact patient with sooner appointment if able. Medications at Discharge Home Medications albuterol sulfate 90 mcg/actuation aerosol inhaler (Ventolin HFA) 2 inh inhalation Q4H PRN shortness of breath or wheezing 06/10/24 apixaban 5 mg tablet (Eliquis) 5 mg PO Q12H 06/10/24 aspirin 81 mg tablet,delayed release (Adult Aspirin Regimen) 81 mg PO DAILY 06/10/24 atenolol 50 mg tablet 100 mg PO Q24H 06/10/24 budesonide-formoterol HFA 80 mcg-4.5 mcg/actuation aerosol inhaler (Symbicort) 2 puff inhalation Q12H 06/10/24 furosemide 40 mg tablet 40 mg PO Q12H 06/10/24 guaifenesin 600 mg tablet, extended release 12 hr (Mucinex) 600 mg PO BID 06/10/24 levothyroxine 75 mcg tablet 75 mcg PO DAILY 06/10/24 lisinopril 20 mg tablet 20 mg PO DAILY 06/10/24 omeprazole 20 mg capsule,delayed release 20 mg PO DAILY 06/10/24 potassium chloride 20 mEq tablet,extended release(part/cryst) 40 meq PO DAILY 06/10/24 psyllium husk 0.4 gram capsule (Daily Fiber) 0.4 g PO DAILY 06/10/24 simvastatin 20 mg tablet (Zocor) 20 mg PO QHS 06/10/24 Hospital Course Operations None Summary of Care Provided Minutes Spent on Discharge: 15 Hospital Course: Patient had a laparoscopic BSO with an 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 She was scheduled to see [facility] onc[facility] for follow up. She presented to the office with heavy vaginal bleeding about 10 days out from surgery, and from the office she was admitted for further care. In the office a mcdaniel catheter was attempted to be placed in the uterus to tamponade the bleeding, however a uterine perforation was noted. The mcdaniel catheter was removed. Her bleeding was scant during admission, and Hgb stable. Eliquis was held during her stay and then resumed on day of discharge. She was discharged home in good condition, and [facility] onc[facility] was contacted regarding patient to try to get sooner follow up. Weight / BMI Weight Weight: 165 lb 12.602 oz Body Mass Index (BMI) 35.7 ABG / Lab / Microbiology Data 06/12/24 06:26 06/10/24 13:10 Laboratory: Laboratory Results - last 24 hr 06/12/24 06:26: WBC 8.3, RBC 3.42 L, Hgb 10.3 L, Hct 31.6 L, MCV 92.4, MCH 30.1, MCHC 32.6, RDW Std Deviation 42.5, RDW Coeff of Tierney 12.6, Plt Count 182, MPV 10.6, Immature Gran % (Auto) 0.500, Neut % (Auto) 78.1 H, Lymph % (Auto) 11.0 L, [place] % (Auto) 8.5, Eos % (Auto) 1.7, Baso % (Auto) 0.2, Absolute Neuts (auto) 6.5, Absolute Lymphs (auto) 0.91, Nucleated RBC % 0 D/C Instructions Discharge Diet: No restrictions May resume sexual activity in: 2 weeks Weight Bearing Status: Weight bearing as tolerated Additional Activity Instructions: Call with fever 100.4 or greater, chills, if you do not feel well like you have the flu, vaginal bleeding increases, abdominal pain, nausea, vomiting Call your doctor if you observe: Fever of 101 or Higher, Inability to have a bowel movement, Using more than 1 pad per hour, Shortness of breath, Dizziness, Fainting spells, Swelling in the ankles, Chest pain, Increased palpitations (irregular heartbeat), Calf discomfort and Uncontrolled pain Please Follow Up With: Cait Becker MD When: As needed Otherwise Dr. Kaycee Hamlin with [facility] should contact you regarding a sooner visit if possible Meaningful Use Info Meaningful Use Meaningful Use Diagnoses (Choose all that apply): None applicable Ischemic Stroke Statin Dosing Therapy Reference: STATIN DOSE THERAPY REFERENCE: * Patients > 75 years receive moderate or high dose statin therapy. * Patients 75 years or YOUNGER should receive HIGH intensity statin dose unless contraindicated. You will be required to document reason for non-treatment if statin daily dose does not meet guidelines. HIGH DOSE STATIN THERAPY DAILY Atorvastatin > than or = to 40 mg Rosuvastatin > than or = to 20 mg Amlodipine + Atorvastatin > than or = to 2.5/40 mg Ezetimibe + Simvastatin 10/80 mg Simvastatin 80mg Discharge Plan Admission Admit Date/Time: 06/11/24 13:55 Primary Reason for Your Visit: vaginal bleeding Attending Provider: Cait Becker Primary Care Provider: Randa Gonzalez NP Consulting Providers: Nato Acuna; Joaquin Torres Discharge Orders/Prescriptions Prescriptions: Continued simvastatin [Zocor] 20 mg tablet 20 mg PO QHS potassium chloride 20 mEq tablet,ER particles/crystals 40 meq PO DAILY albuterol sulfate [Ventolin HFA] 90 mcg/actuation HFA aerosol inhaler 2 inh inhalation Q4H PRN (Reason: shortness of breath or wheezing) furosemide 40 mg tablet 40 mg PO Q12H Eliquis 5 mg tablet 5 mg PO Q12H atenolol 50 mg tablet 100 mg PO Q24H levothyroxine 75 mcg tablet 75 mcg PO DAILY lisinopril 20 mg tablet 20 mg PO DAILY guaifenesin [Mucinex] 600 mg tablet extended release 12hr 600 mg PO BID psyllium husk [Daily Fiber] 0.4 gram capsule 0.4 g PO DAILY aspirin [Adult Aspirin Regimen] 81 mg tablet,delayed release (DR/EC) 81 mg PO DAILY omeprazole 20 mg capsule,delayed release(DR/EC) 20 mg PO DAILY budesonide-formoterol [Symbicort] 80-4.5 mcg/actuation HFA aerosol inhaler 2 puff inhalation Q12H Referrals / Follow Up: Randa Gonzalez NP, [employer] [Primary Care Provider] - Disposition Disposition (needs filled in before D/C Order can be placed): Home, Self Care
[2024-06-12 08:31] VITALS: BP 149/89; PULSE 69; RESP 15; TEMP 36.7; O2SAT 96
[2024-06-12] MEDS: guaiFENesin 600 MG Tablet PO (09:14)
[2024-06-12] MEDS: Atenolol 100 MG Tablet PO (09:15)
[2024-06-12] MEDS: Pantoprazole Sodium 20 MG Tablet PO (09:17)
[2024-06-12] MEDS: APIXABAN 5 MG TABLET PO (09:18)
--- NOTE | 2024-06-12 09:19 | CASEMGMT ---
Pt noted to have a dc order in. Pt states she is I at home, ambulates without a device. Pt denies any homegoing needs at this time.
--- NOTE | 2024-06-12 09:39 | PHA.DC.MR.R ---
Pharmacy [place] Med Reconciliation Pharmacy Service has performed discharge medication reconciliation for this patient. The patient's discharge medication list was reviewed for discrepancies and discrepancies were resolved. Medications at Discharge Home Medications albuterol sulfate 90 mcg/actuation aerosol inhaler (Ventolin HFA) 2 inh inhalation Q4H PRN shortness of breath or wheezing 06/10/24 apixaban 5 mg tablet (Eliquis) 5 mg PO Q12H 06/10/24 aspirin 81 mg tablet,delayed release (Adult Aspirin Regimen) 81 mg PO DAILY 06/10/24 atenolol 50 mg tablet 100 mg PO Q24H 06/10/24 budesonide-formoterol HFA 80 mcg-4.5 mcg/actuation aerosol inhaler (Symbicort) 2 puff inhalation Q12H 06/10/24 furosemide 40 mg tablet 40 mg PO Q12H 06/10/24 guaifenesin 600 mg tablet, extended release 12 hr (Mucinex) 600 mg PO BID 06/10/24 levothyroxine 75 mcg tablet 75 mcg PO DAILY 06/10/24 lisinopril 20 mg tablet 20 mg PO DAILY 06/10/24 omeprazole 20 mg capsule,delayed release 20 mg PO DAILY 06/10/24 potassium chloride 20 mEq tablet,extended release(part/cryst) 40 meq PO DAILY 06/10/24 psyllium husk 0.4 gram capsule (Daily Fiber) 0.4 g PO DAILY 06/10/24 simvastatin 20 mg tablet (Zocor) 20 mg PO QHS 06/10/24
[2024-06-12 10:44] VITALS: BP 144/59; PULSE 72; RESP 16; TEMP 36.8; O2SAT 95
[2024-06-12 11:52] VITALS: BP 132/62; PULSE 69; RESP 16; TEMP 36.9; O2SAT 94
[2024-06-12 16:00] VITALS: BP 126/55; PULSE 66; RESP 16; TEMP 36.7; O2SAT 96
== END 2024-06-12 15:54 | disposition home or self-care (01) | DRG 760 ==
LOC: ED 13:24 → MS3 14:10
PROVIDERS: Hospitalist; Internal Medicine; Admitting Provider Obstetrics & Gynecology; Emergency Provider Emergency Medicine; PCP Nurse Practitioner Family; Visit Provider Obstetrics & Gynecology
DX: N93.9 Abnormal uterine and vaginal bleeding, unspecified (principal); T83.498A Other mechanical complication of other prosthetic devices, implants and grafts of genital tract, initial encounter; D68.32 Hemorrhagic disorder due to extrinsic circulating anticoagulants; I50.32 Chronic diastolic (congestive) heart failure; D62 Acute posthemorrhagic anemia; C57.02 Malignant neoplasm of left fallopian tube; C76.3 Malignant neoplasm of pelvis; J44.9 Chronic obstructive pulmonary disease, unspecified; I11.0 Hypertensive heart disease with heart failure; E03.9 Hypothyroidism, unspecified; E66.9 Obesity, unspecified; I48.91 Unspecified atrial fibrillation; E78.5 Hyperlipidemia, unspecified; K21.9 Gastro-esophageal reflux disease without esophagitis; Y76.1 Therapeutic (nonsurgical) and rehabilitative obstetric and gynecological devices associated with adverse incidents; Y92.239 Unspecified place in hospital as the place of occurrence of the external cause; Y83.6 Removal of other organ (partial) (total) as the cause of abnormal reaction of the patient, or of later complication, without mention of misadventure at the time of the procedure; Z68.36 Body mass index [BMI] 36.0-36.9, adult; Z79.01 Long term (current) use of anticoagulants; Z79.82 Long term (current) use of aspirin; Z79.51 Long term (current) use of inhaled steroids; Z79.890 Hormone replacement therapy; Z79.899 Other long term (current) drug therapy; Z90.722 Acquired absence of ovaries, bilateral
CPT/HCPCS: 36415; 74174; 80048; 85025; 85027; 85610; 85730; 86850; 86900; 86901; 94640; 99283; Q9967; A4216; J2405